=== PATIENT | female | born 1970 | race Caucasian/White ===

== ENCOUNTER 2017-03-21 05:47 | Day surgery (SDC) | payer OTHER ==
[2017-03-21] MEDS ORDERED: LIDOCAINE 1% 2 ML INJ ONE (06:13)
[2017-03-21] MEDS ORDERED: SCOPOLAMINE HYDROBROMIDE 1.5 MG PATCH TD ONE (06:30)
[2017-03-21] MEDS ORDERED: CLINDAMYCIN 900 MG/DEXTROSE 50 ML IV ONE (06:30)
[2017-03-21] MEDS ORDERED: ACETAMINOPHEN 500 MG TAB PO ONE (06:30)
[2017-03-21] MEDS ORDERED: PREGABALIN 150 MG CAP PO ONE (06:30)
[2017-03-21] MEDS ORDERED: LIDOCAINE 1% 300 MG/30 ML SDV ONE (06:53)
[2017-03-21] MEDS ORDERED: fentaNYL 100 MCG/2 ML INJ ONE (07:03)
[2017-03-21] MEDS ORDERED: REMIFENTANIL HCL 1 MG VIAL ONE (07:03)
[2017-03-21] MEDS ORDERED: PROPOFOL 200 MG/20 ML VIAL ONE (07:04)
[2017-03-21] MEDS ORDERED: PROPOFOL/EMULSION 500 MG/50 ML BOTTLE IV ONE (07:04)
[2017-03-21] MEDS ORDERED: LIDOCAINE 2% 100 MG/5 ML SYR ONE (07:09)
[2017-03-21] MEDS ORDERED: MIDAZOLAM 2 MG/2 ML VIAL ONE (07:24)
== END 2017-03-21 11:03 | disposition home or self-care (01) ==
LOC: FSGY 05:47
PROVIDERS: ATTEND Orthopaedic Surgery Sports Medicine
PROC: 0QP204Z Removal of Internal Fixation Device from Right Pelvic Bone, Open Approach (ICD-10-PCS; principal; 2017-03-21 07:15)
DX: T84.84XA Pain due to internal orthopedic prosthetic devices, implants and grafts, initial encounter (principal)
CPT/HCPCS: J2001; J2250; J2704; J3010